=== PATIENT | male | born 1985 | race Caucasian/White ===

== ENCOUNTER 2017-10-04 03:10 | Emergency (ER) | payer BC, OTHER ==
[2017-10-04 03:19] VITALS: BP 138/92
[2017-10-04] MEDS ORDERED: Penicillin V Potassium 500 MG Tab PO ONE (04:15)
[2017-10-04] MEDS ORDERED: Naproxen 500 MG Tab PO ONE (04:16)
--- NOTE | 2017-10-04 04:22 | EDM.PDOC ---
ED HPI GENERAL MEDICAL PROBLEM - General Chief Complaint: ENT Problem Stated Complaint: TOOTH PAIN Time Seen by Provider: 10/04/17 03:30 Source of Information: Reports: Patient, Family () History Limitations: Reports: No Limitations - History of Present Illness INITIAL COMMENTS - FREE TEXT/NARRATIVE: The patient states that he saw a dentist about 2 weeks ago for dental pain, and was told that he needed at least 2 teeth to be removed. The patient has an appointment to see an oral surgeon in [place] on 10/24/2017. He states that he developed lower left molar pain and jaw swelling tonight. He has not had fever, but he has had oral drainage tonight. The patient does not have a PCP. Left Lower Tooth/Teeth Pain Score (Numeric/FACES): 7 - Related Data Allergies Allergy/AdvReac Type Severity Reaction Status Date / Time Sulfa (Sulfonamide Allergy Cannot Verified 10/04/17 03:17 Antibiotics) Remember Home Meds: Home Meds ARIPiprazole [Abilify] 15 mg PO DAILY 11/13/15 [History] Naproxen 1 tab PO Q12H PRN #20 tablet 10/04/17 [Rx] Penicillin V Potassium [IJD: Penicillin V Potassium] 1 tab PO Q6H #40 tab [Rx] Past Medical History Psychiatric History: Reports: Bipolar - Infectious Disease History Infectious Disease History: Reports: C-Difficile Social & Family History - Tobacco Use Smoking Status *Q: Former Smoker Years of Tobacco use: 16 Packs/Tins Daily: 1 Month/Year Tobacco Last Used: Quit 2016 Second Hand Smoke Exposure: No - Alcohol Use Alcohol Use History: Yes Alcohol Use Frequency: Socially - Recreational Drug Use Recreational Drug Use: No - Living Situation & Occupation Living situation: Reports: , with Spouse, with Family (1 stepchild) Occupation: Employed ([employer]) ED ROS ENT - Review of Systems Review Of Systems: ROS reveals no pertinent complaints other than HPI. ED EXAM, ENT - Physical Exam Exam: See Below Exam Limited By: No Limitations General Appearance: Alert, WD/WN, No Apparent Distress Eye Exam: Bilateral Eye: Normal Inspection Ears: Normal External Exam, Normal Canal, Hearing Grossly Normal, Normal TMs Nose: No Blood, Other (Nasal polyp on the right) Mouth/Throat: Normal Lips, Normal Oropharynx, Other (Tooth #2 carious. Tooth #3 with filling. Tooth #14 with filling. Tooth #17 absent. Tooth #19 (the tooth of concern) carious, and with adjacent abscess. Tooth #30 with filling. Tooth #31 absent.) Head: Atraumatic, Normocephalic Neck: Normal Inspection, Supple, Non-Tender, Full Range of Motion. No: Lymphadenopathy (L), Lymphadenopathy (R) Course - Vital Signs Last Recorded V/S: Last Vital Signs Temp 36.1 C 10/04/17 03:17 Pulse 69 10/04/17 03:17 Resp 16 10/04/17 03:17 BP 138/92 H 10/04/17 03:17 Pulse Ox 100 10/04/17 03:17 - Orders/Labs/Meds Meds: Medications Discontinued Medications Generic Name Dose Route Start Last Admin Trade Name Freq PRN Reason Stop Dose Admin Naproxen 500 mg 10/04/17 04:16 10/04/17 04:32 Naprosyn PO 10/04/17 04:17 500 mg ONETIME ONE Administration Penicillin V Potassium 500 mg 10/04/17 04:15 10/04/17 04:32 Veetids PO 10/04/17 04:16 500 mg ONETIME ONE Administration - Re-Assessments/Exams Free Text/Narrative Re-Assessment/Exam: 10/04/17 04:17 The patient appears to have a dental abscess of tooth #19. I offered to apply a topical anesthetic versus local injection to I & D the abscess, but the patient declined. He agrees to follow-up with his dentist this coming Friday, 2017. In the meantime, I will start the patient on oral penicillin and naproxen. A stronger analgesic, such as her narcotic was offered, but declined, as this would not allow the patient to drive or operate heavy machinery. These will be e-prescribed. Departure - Departure Time of Disposition: 04:18 Disposition: Home, Self-Care 01 Condition: Fair Clinical Impression: Dental abscess - Discharge Information Prescriptions: Naproxen 1 tab PO Q12H PRN #20 tablet PRN Reason: Pain Penicillin V Potassium [IJD: Penicillin V Potassium] 1 tab PO Q6H #40 tab Instructions: Dental Abscess Referrals: PCP,None [Primary Care Provider] - Forms: ED Department Discharge Additional Instructions: You were seen in the emergency room for a lower left toothache and swelling. On examination, you have a dental abscess of tooth #19. Incision and drainage was offered, but declined. You have been started on the antibiotic penicillin, as well as the pain medicine naproxen. Prescriptions for these have been sent to the [facility], located in the [facility] grocery store. Take one tablet of penicillin every 6 hours, starting at 10:00 this morning, as prescribed. Take one tablet of naproxen every 12 hours, with food, as prescribed. It is important that you follow-up with your dentist, Dr. Fabiola Lopez, this coming 10/06/2017. If any other problems, please do not hesitate to return to the ER.
== END 2017-10-04 04:34 | disposition home or self-care (01) ==
LOC: JD.ED 03:10
DX: K04.7 Periapical abscess without sinus (principal); Z87.891 Personal history of nicotine dependence; Z88.2 Allergy status to sulfonamides
CPT/HCPCS: 99282; A9270; 99283

== ENCOUNTER 2018-08-23 18:26 | Emergency (ER) | payer OTHER ==
[2018-08-23 18:36] VITALS: BP 141/87
[2018-08-23] MEDS ORDERED: Albuterol 0.083% 2.5 MG/3 ML Neb Soln NEB ONE (18:54)
[2018-08-23] MEDS ORDERED: Doxycycline 100 MG Cap PO ONE (19:31)
--- NOTE | 2018-08-23 19:41 | EDM.PDOC ---
ED HPI GENERAL MEDICAL PROBLEM - General Chief Complaint: Respiratory Problem Stated Complaint: HARD TIME BREATHING Time Seen by Provider: 08/23/18 18:49 Source of Information: Reports: Patient, RN Notes Reviewed - History of Present Illness INITIAL COMMENTS - FREE TEXT/NARRATIVE: 33 year old male has been fighting cough, sinus congestion for about 3 weeks. Has become more short of breath this past few days, especially with cold air exposure. No recent fever or chills. He does feel a lot of sinus pressure, has had a lot of post nasal drainage. No hx of asthma or other known lung problems. Asthma does run in his family. - Related Data Allergies Allergy/AdvReac Type Severity Reaction Status Date / Time Sulfa (Sulfonamide Allergy Cannot Verified 08/23/18 18:32 Antibiotics) Remember Home Meds: Home Meds Albuterol [Proventil HFA] 200 puff INH Q4H PRN #1 inhaler 08/23/18 [Rx] Doxycycline [Vibramycin] 100 mg PO BID #14 tab 08/23/18 [Rx] Topiramate [Topamax] 75 mg PO DAILY 08/23/18 [History] Past Medical History - Past Health History Medical/Surgical History: Denies Medical/Surgical History Musculoskeletal History: Reports: Fracture Psychiatric History: Reports: Bipolar - Infectious Disease History Infectious Disease History: Reports: C-Difficile Social & Family History - Living Situation & Occupation Living situation: Reports: , with Spouse, with Family (1 stepchild) Occupation: Employed ([employer]) ED ROS GENERAL - Review of Systems Review Of Systems: See Below Constitutional: Denies: Fever, Chills, Diaphoresis HEENT: Reports: Rhinitis, Sinus Problem, Throat Pain (gone) Respiratory: Reports: Shortness of Breath, Wheezing, Cough, Sputum Cardiovascular: Denies: Chest Pain GI/Abdominal: Denies: Abdominal Pain, Nausea, Vomiting Musculoskeletal: Reports: No Symptoms Skin: Reports: No Symptoms Neurological: Reports: No Symptoms ED EXAM, GENERAL - Physical Exam Exam: See Below General Appearance: Alert, No Apparent Distress Eye Exam: Bilateral Eye: PERRL Throat/Mouth: Normal Inspection, Normal Oropharynx Head: No: Facial Swelling, Facial Tenderness Neck: Supple. No: Lymphadenopathy (L), Lymphadenopathy (R) Respiratory/Chest: Respiratory Distress (mild), Wheezing (mild bilat) Cardiovascular: Regular Rate, Rhythm Extremities: Normal Inspection, Normal Range of Motion Neurological: Alert Skin Exam: Warm, Dry, Normal Color Course - Vital Signs Last Recorded V/S: Last Vital Signs Temp 98.3 F 08/23/18 18:32 Pulse 92 08/23/18 18:32 Resp 18 08/23/18 18:32 BP 141/87 H 08/23/18 18:32 Pulse Ox 100 08/23/18 18:55 - Orders/Labs/Meds Orders: Active Orders 24 hr Category Date Time Status RT Aerosol Therapy [RC] ASDIRECTED Care 08/23/18 18:55 Active Chest 1V Frontal [CR] Stat Exams 08/23/18 18:55 Taken Meds: Medications Discontinued Medications Generic Name Dose Route Start Last Admin Trade Name Freq PRN Reason Stop Dose Admin Albuterol 2.5 mg 08/23/18 18:54 08/23/18 19:05 Proventil Neb Soln NEB 08/23/18 18:55 2.5 mg ONETIME ONE Administration Doxycycline Hyclate 100 mg 08/23/18 19:31 Vibramycin PO 08/23/18 19:32 ONETIME ONE - Re-Assessments/Exams Free Text/Narrative Re-Assessment/Exam: 08/23/18 19:48 chest X ray is clear, we did give an alb. neb and with that the wheezing he presented with is gone, discharge instr. as documented. Departure - Departure Time of Disposition: 19:33 Disposition: Home, Self-Care 01 Condition: Fair Clinical Impression: Bronchitis Sinusitis Qualifiers: Sinusitis location: maxillary Chronicity: acute Recurrence: non-recurrent Qualified Code(s): J01.00 - Acute maxillary sinusitis, unspecified - Discharge Information Prescriptions: Albuterol [Proventil HFA] 200 puff INH Q4H PRN #1 inhaler PRN Reason: Wheezing Doxycycline [Vibramycin] 100 mg PO BID #14 tab Instructions: Sinusitis, Adult, [id number], Acute Bronchitis, Adult Referrals: PCP,None [Primary Care Provider] - Forms: ED Department Discharge Additional Instructions: You have been given the first dose of doxycycline antibiotic here in the ED, continue that twice daily for 1 week or until gone, albuterol hand held inhaler , 2 puffs q 4 to 6 hr as needed for wheezing and/or severe cough, difficulty breathing. Vaporizer or steam as needed. Follow up clinic if not much better within 7 to 10 days as expected. - My Orders Last 24 Hours: My Active Orders 08/23/18 18:55 RT Aerosol Therapy [RC] ASDIRECTED Chest 1V Frontal [CR] Stat - Assessment/Plan Last 24 Hours: My Active Orders 08/23/18 18:55 RT Aerosol Therapy [RC] ASDIRECTED Chest 1V Frontal [CR] Stat
--- NOTE | 2018-08-24 06:52 | CR ---
Chest: Portable view of the chest was obtained. Comparison: No prior chest x-ray. Heart size and mediastinum are normal. Lungs are clear. Bony structures are grossly intact. Impression: 1. Nothing acute is seen on portable chest x-ray. Diagnostic code #1
== END 2018-08-23 19:50 | disposition home or self-care (01) ==
LOC: JD.ED 18:26
DX: J40 Bronchitis, not specified as acute or chronic (principal); J01.00 Acute maxillary sinusitis, unspecified; F17.290 Nicotine dependence, other tobacco product, uncomplicated; Z88.2 Allergy status to sulfonamides; Z79.899 Other long term (current) drug therapy
CPT/HCPCS: 71045; 94640; 99285; A9270; 99283